=== PATIENT | female | born 1960 | race Caucasian/White ===

== ENCOUNTER 2017-09-29 19:10 | Emergency (ER) | payer OTHER ==
[~2017-09-29] VITALS: Ht 149.9 cm; Wt 63.5 kg
[~2017-09-29 19:10] MED LIST: ACET325 PO; ASPI81CH PO; BENZ100A PO; BISA5EC; BISA5EC PO; CALCAVITD PO; CALCAVITDA; CALCIUM; CHLGLU.12S; CHLGLU.12S MT; CLIN300 PO; DIAZ10 UD; DIVA250EC PO; DIVA500ER; DIVA500ER PO; DOCU100; DOCU100 PO; Enulose10 GM/15 M PO; FURO40; FURO80; FURO80 PO; Fleet Bisa10 MG/30 M RC; LACT10SY PO; LAMICTAL; LAMO100 PO; LAVAP17G; LEVFLO250 PO; MEDR150I; MEDR150I IM; MINE10T; MINERAL OIL HEAV1 ML BOTHEARS; MIRALAX17 GM PO; PHENY100ER PO; POTCHL20ER; POTCHL20ER PO; SENN187 PO; SORB70L; SORB70L PO; TERB24TC; TERB24TC TOP; Zithromax250 MG PO
[2017-09-29] MEDS ORDERED: DOCU100 PO (20:20)
[2017-09-29] MEDS ORDERED: MINERAL OIL HEAV1 ML BOTHEARS (20:21)
[2017-09-29] MEDS ORDERED: BISA5EC PO (20:21)
[2017-09-29] MEDS ORDERED: ACETADRYL 500-1 EACH PO (20:22)
[2017-09-29] MEDS ORDERED: MIRALAX17 GM PO (20:22)
[2017-09-29] MEDS ORDERED: FURO80 PO (20:22)
[2017-09-29] MEDS ORDERED: ASPI81CH PO (20:23)
[2017-09-29] MEDS ORDERED: Senexon8.6 MG PO (20:23)
[2017-09-29] MEDS ORDERED: POTCHL20ER PO (20:23)
[2017-09-29] MEDS ORDERED: LACTULOSE10 GM/15 M PO (20:24)
[2017-09-29] MEDS ORDERED: CVS CALCIUM 501 EAC2 PO (20:24)
[2017-09-29] MEDS ORDERED: Lamictal200 MG PO (20:25)
[2017-09-29] MEDS ORDERED: Mucinex600 MG PO (21:33)
[2017-09-29] MEDS ORDERED: BENZ100A PO (21:33)
[2018-07-20] MEDS ORDERED: Dulcolax Stool100 MG PO (14:00)
[2018-07-20] MEDS ORDERED: Metamucil Smooth1 EA PO (14:01)
[2018-07-20] MEDS ORDERED: SENN187 PO (14:02)
[2018-07-20] MEDS ORDERED: LACT10SY PO (14:03)
[2018-07-20] MEDS ORDERED: GAVILAX17 GM PO (14:04)
[2018-07-20] MEDS ORDERED: DIAZ10 PO (14:05)
[2018-07-20] MEDS ORDERED: FURO80 PO (14:06)
[2018-07-20] MEDS ORDERED: ASPI81CH PO (14:06)
[2018-07-20] MEDS ORDERED: Lamictal200 MG PO (14:07)
[2018-07-20] MEDS ORDERED: Dulcolax5 MG PO (14:08)
[2018-07-20] MEDS ORDERED: POTCHL20ER PO (14:09)
[2018-07-20] MEDS ORDERED: MINERAL OIL BOTHEARS (14:11)
[2018-07-20] MEDS ORDERED: PERIDEX15 ML (14:15)
[2018-07-20] MEDS ORDERED: PERIDEX15 ML PO (14:16)
[2018-07-20] MEDS ORDERED: TYLENOL PM PO (14:21)
[2018-07-20] MEDS ORDERED: ACET325 PO (14:22)
[2018-07-20] MEDS ORDERED: HYDROCORTISONE TOP (14:26)
[2018-07-20] MEDS ORDERED: DERMASEPTIN OI113 GM TOP (14:29)
[2018-07-20] MEDS ORDERED: FOLGARD OS PO (14:31)
[2018-07-20] MEDS ORDERED: XYLITOL PO ×2 (14:33→14:36)
[2018-07-20] MEDS ORDERED: Omeprazole20 M1 PO (14:36)
[2018-07-20] MEDS ORDERED: REGULOID PO (14:38)
[2018-07-20] MEDS ORDERED: MAGNESIUM400 MG PO (14:39)
[2018-07-20] MEDS ORDERED: MIRT15 PO (14:41)
== END 2017-09-29 21:38 | disposition home or self-care (01) ==
LOC: ER 19:10
DX: J40 Bronchitis, not specified as acute or chronic (principal); Z88.1 Allergy status to other antibiotic agents; Z88.8 Allergy status to other drugs, medicaments and biological substances; Z79.899 Other long term (current) drug therapy; Z79.82 Long term (current) use of aspirin; I10 Essential (primary) hypertension
CPT/HCPCS: 71046; 99283

== ENCOUNTER 2017-11-30 11:37 | Emergency (ER) | payer OTHER ==
[~2017-11-30] VITALS: Ht 154.9 cm; Wt 67.6 kg
[~2017-11-30 11:37] MED LIST changes: +ACETADRYL 500-1 EACH PO; +CVS CALCIUM 501 EAC2 PO; +LACTULOSE10 GM/15 M PO; +Lamictal200 MG PO; +Mucinex600 MG PO; +Senexon8.6 MG PO
[2017-11-30] MEDS ORDERED: Omeprazole20 M1 (12:30)
[2017-11-30] MEDS ORDERED: ERYT1OIN BOTHEYES ×2 (12:32→12:34)
[2018-07-20] MEDS ORDERED: Dulcolax Stool100 MG PO (14:00)
[2018-07-20] MEDS ORDERED: Metamucil Smooth1 EA PO (14:01)
[2018-07-20] MEDS ORDERED: SENN187 PO (14:02)
[2018-07-20] MEDS ORDERED: LACT10SY PO (14:03)
[2018-07-20] MEDS ORDERED: GAVILAX17 GM PO (14:04)
[2018-07-20] MEDS ORDERED: DIAZ10 PO (14:05)
[2018-07-20] MEDS ORDERED: FURO80 PO (14:06)
[2018-07-20] MEDS ORDERED: ASPI81CH PO (14:06)
[2018-07-20] MEDS ORDERED: Lamictal200 MG PO (14:07)
[2018-07-20] MEDS ORDERED: Dulcolax5 MG PO (14:08)
[2018-07-20] MEDS ORDERED: POTCHL20ER PO (14:09)
[2018-07-20] MEDS ORDERED: MINERAL OIL BOTHEARS (14:11)
[2018-07-20] MEDS ORDERED: PERIDEX15 ML (14:15)
[2018-07-20] MEDS ORDERED: PERIDEX15 ML PO (14:16)
[2018-07-20] MEDS ORDERED: TYLENOL PM PO (14:21)
[2018-07-20] MEDS ORDERED: ACET325 PO (14:22)
[2018-07-20] MEDS ORDERED: HYDROCORTISONE TOP (14:26)
[2018-07-20] MEDS ORDERED: DERMASEPTIN OI113 GM TOP (14:29)
[2018-07-20] MEDS ORDERED: FOLGARD OS PO (14:31)
[2018-07-20] MEDS ORDERED: XYLITOL PO ×2 (14:33→14:36)
[2018-07-20] MEDS ORDERED: Omeprazole20 M1 PO (14:36)
[2018-07-20] MEDS ORDERED: REGULOID PO (14:38)
[2018-07-20] MEDS ORDERED: MAGNESIUM400 MG PO (14:39)
[2018-07-20] MEDS ORDERED: MIRT15 PO (14:41)
== END 2017-11-30 13:54 | disposition home or self-care (01) ==
LOC: ER 11:37
DX: H18.9 Unspecified disorder of cornea (principal); R62.50 Unspecified lack of expected normal physiological development in childhood; I11.0 Hypertensive heart disease with heart failure; I50.9 Heart failure, unspecified; Z88.1 Allergy status to other antibiotic agents; Z88.8 Allergy status to other drugs, medicaments and biological substances; Z79.899 Other long term (current) drug therapy; Z79.82 Long term (current) use of aspirin
CPT/HCPCS: 99282

== ENCOUNTER 2017-12-04 15:50 | Emergency (ER) | payer OTHER ==
[~2017-12-04] VITALS: Ht 157.5 cm; Wt 65.8 kg
[~2017-12-04 15:50] MED LIST changes: +ERYT1OIN BOTHEYES; +Omeprazole20 M1
[2017-12-04] MEDS ORDERED: LAMO100 PO (16:51)
[2017-12-04 17:12] LABS: BASOPHILS ABSOLUTE AUTO 0.02 K/mm3 (0.00-0.23); BASOPHILS PERCENT AUTO 0 % (0-2); EOSINOPHILS ABSOLUTE AUTO 0.07 K/mm3 (0.00-0.68); EOSINOPHILS PERCENT AUTO 1 % (0-6); Hematocrit 42.2 % (33.0-51.0); Hemoglobin 13.8 g/dL (11.5-16.0); IMMATURE GRAN ABSOLUTE AUTO 0.05 K/mm3 (0.00-0.10); IMMATURE GRAN PERCENT AUTO 0 % (0-1); LYMPHOCYTES ABSOLUTE AUTO 0.92 K/mm3 (0.84-5.20); LYMPHOCYTES PERCENT AUTO 7 % (21-46); MONOCYTES ABSOLUTE AUTO 0.82 K/mm3 (0.16-1.47); MONOCYTES PERCENT AUTO 7 % (4-13); Mean Corpuscular HGB 31.8 pg (26.0-34.0); Mean Corpuscular HGB Conc 32.7 g/dL (31.5-36.5); Mean Corpuscular Volume 97 fL (80-100); NEUTROPHILS ABSOLUTE AUTO 10.51 K/mm3 (1.96-9.15); NEUTROPHILS PERCENT AUTO 85 % (41-73); RDW Coefficient Variation 12.4 % (11.7-14.2); RDW Standard Deviation 44.5 fL (35.1-46.3); Red Blood Cell Count 4.34 M/mm3 (3.80-5.20); White Blood Cell Count 12.39 K/mm3 (4.00-11.30)
[2017-12-04 17:15] LABS: Mean Platelet Volume 12.3 fL (9.1-12.4)
[2017-12-04 17:27] LABS: Alanine Aminotransfer (ALT/SGP 21 U/L (12-78); Albumin, Blood 3.4 g/dL (3.4-5.0); Albumin/Globulin Ratio 0.8 (0.8-1.8); Alk Phos 74 U/L (50-136); Anion Gap 8 mmol/L (6-16); Aspartate Aminotrans (AST/SGOT 33 U/L (12-37); Bilirubin, Total 0.5 mg/dL (0.1-1.0); Blood Urea Nitrogen 12 mg/dL (8-24); Bun/Creatinine Ratio 13.9 (12.0-20.0); CO2, Blood 28 mmol/L (21-32); Calcium, Blood 9.4 mg/dL (8.5-10.1); Chloride, Blood 103 mmol/L (98-108); Creatinine, Blood 0.86 mg/dL (0.40-1.00); Globulin, Blood 4.1 g/dL (2.2-4.0); Glomerular Filtration Rate >60 (60-); Glucose, Blood 118 mg/dL (70-99); Potassium, Blood 4.1 mmol/L (3.5-5.5); Sodium, Blood 139 mmol/L (136-145); Total Protein, Blood 7.5 g/dL (6.4-8.2)
[2017-12-04 17:37] LABS: Platelet Count 72 K/mm3 (150-400)
[2017-12-04] MEDS ORDERED: HYDR1TAB94 PO (19:30)
[2017-12-04 19:32] LABS: Source, Urine Clean Catch
[2017-12-04 19:38] LABS: Appearance, Urine Clear (Clear); Bilirubin, Urine Neg (Neg); Blood, Urine 3+ (Neg); Color, Urine Yellow (P-Yellow); Glucose Qualitative, Urine Neg (Neg); Ketones, Urine Neg (Neg); Leukocyte Esterase, Urine Neg (Neg); Nitrite, Urine Neg (Neg); Protein, Urine Neg (Neg); Urobilinogen, Urine NORM (Normal)
[2017-12-04 19:46] LABS: Bacteria Mod /hpf; Squamous Epithelial Cells Rare /hpf (Few)
== END 2017-12-04 19:38 | disposition home or self-care (01) ==
LOC: ER 15:50
PROVIDERS: Emergency Medicine
DX: R10.9 Unspecified abdominal pain (principal); R62.50 Unspecified lack of expected normal physiological development in childhood; Z88.0 Allergy status to penicillin; Z88.1 Allergy status to other antibiotic agents; Z88.8 Allergy status to other drugs, medicaments and biological substances; Z79.899 Other long term (current) drug therapy; Z79.82 Long term (current) use of aspirin; I10 Essential (primary) hypertension
CPT/HCPCS: 36415; 74176; 80053; 81001; 85025; 96360; 96361; 96372; 99284; J7030

== ENCOUNTER 2018-10-21 08:14 | Day surgery (SDC) | payer OTHER ==
[~2018-10-21] VITALS: Ht 154.9 cm; Wt 72.7 kg
[~2018-10-21 08:14] MED LIST changes: +ACET325; +ANTIBIOTIC; +Acetaminophen1 EAC2 PO; +Aspirin EC81 MG PO; +CALCIUM 600+D31 EACH PO; +CALMOSEPTINE O3.5 GM; +CARB10OTL; +CORTISONE60 GM; +DERMASEPTIN OI113 GM TOP; +DIAZ10; +DIAZ10 PO; +Dulcolax Stool100 MG PO; +Dulcolax5 MG PO; +Enema133 M1 RC; +FOLGARD OS PO; +GAVILAX17 GM PO; +HYDR1TAB94 PO; +HYDROCORTISONE TOP; +Laxative5 M1 PO; +MAGNESIUM400 MG PO; +MINERAL OIL BOTHEARS; +MINERAL OIL HEAV1 ML; +MIRT15; +MIRT15 PO; +Metamucil Smooth1 EA PO; +Murine Ear Wax15 ML OT; +Omeprazole20 M1 PO; +PERIDEX15 ML; +PERIDEX15 ML PO; +POTASSIUM CHLO20 MEQ PO; +PSYLLIUM SEED480 GM PO; +REGULOID PO; +REGULOID POWDE; +SLEEP PO; +Stool Softener100 MG PO; +TYLENOL PM PO; +VICKS VAPORUB O50 GM; +XYLITOL PO; +[UNRECOGNIZED DRUG - OTHER]; +[UNRECOGNIZED DRUG - OTHER]; +[UNRECOGNIZED DRUG - OTHER]
--- NOTE | 2018-10-21 11:16 | NUR ---
10/21/18 1116 Hayley Dunham 1100 recieved report from [email or web address].[email or web address].
== END 2018-10-21 11:55 | disposition home or self-care (01) ==
LOC: ORSCSDS 08:14
PROVIDERS: Ophthalmology
PROC: 08B43ZZ Excision of Right Vitreous, Percutaneous Approach (ICD-10-PCS; principal; 2018-10-21 10:00)
PROC: 08PJ3JZ Removal of Synthetic Substitute from Right Lens, Percutaneous Approach (ICD-10-PCS; principal; 2018-10-21 10:00)
DX: T85.22XA Displacement of intraocular lens, initial encounter (principal); H21.1X1 Other vascular disorders of iris and ciliary body, right eye; Q02 Microcephaly; G40.909 Epilepsy, unspecified, not intractable, without status epilepticus; Q24.9 Congenital malformation of heart, unspecified; Z79.899 Other long term (current) drug therapy; Z79.82 Long term (current) use of aspirin
CPT/HCPCS: J2001; J2250; J2405; J3010; J3301; J7120

== ENCOUNTER → 2019-03-15 | Outpatient (CLI) | payer OTHER ==
[2019-03-16 10:08] LABS: Source, Urine Voided
[2019-03-16 16:01] LABS: Bilirubin, Urine Neg (Neg); Blood, Urine 1+ (Neg); Glucose Qualitative, Urine Neg (Neg); Ketones, Urine Neg (Neg); Leukocyte Esterase, Urine 3+ (Neg); Nitrite, Urine Neg (Neg); Protein, Urine 2+ (Neg); Urobilinogen, Urine NORM (Normal)
[2019-03-16 16:02] LABS: Appearance, Urine Hazy (Clear); Color, Urine Yellow (P-Yellow)
[2019-03-16 16:03] LABS: White Blood Cells, Urine TNTC /hpf (0-5)
[2019-03-16 16:04] LABS: Bacteria Many /hpf; Squamous Epithelial Cells Few /hpf (Few)
== END ==
LOC: LAB 10:02 → LAB SHORT 10:02
PROVIDERS: Nurse Practitioner Family
DX: R35.0 Frequency of micturition (principal)
CPT/HCPCS: 81001; 87077; 87086; 87186

== ENCOUNTER 2019-06-13 14:00 | Emergency (ER) | payer OTHER ==
[~2019-06-13] VITALS: Ht 157.5 cm; Wt 78.0 kg
== END 2019-06-13 15:04 | disposition home or self-care (01) ==
LOC: ER 14:00
DX: S00.33XA Contusion of nose, initial encounter (principal); R04.0 Epistaxis; W22.8XXA Striking against or struck by other objects, initial encounter; Z88.0 Allergy status to penicillin; Z88.8 Allergy status to other drugs, medicaments and biological substances; Z79.899 Other long term (current) drug therapy; Z79.82 Long term (current) use of aspirin; I10 Essential (primary) hypertension
CPT/HCPCS: 99283

== ENCOUNTER → 2019-07-29 | Outpatient (CLI) | payer OTHER ==
[2019-07-29 17:44] LABS: Bilirubin, Urine Neg (Neg); Blood, Urine 2+ (Neg); Glucose Qualitative, Urine Neg (Neg); Ketones, Urine 1+ (Neg); Leukocyte Esterase, Urine 3+ (Neg); Nitrite, Urine Neg (Neg); Protein, Urine 1+ (Neg); Specific Gravity, Urine 1.015 (1.003-1.022); Urobilinogen, Urine NORM (Normal)
[2019-07-29 17:56] LABS: Appearance, Urine Hazy (Clear); Color, Urine Yellow (P-Yellow)
[2019-07-29 17:57] LABS: Bacteria Many /hpf; Squamous Epithelial Cells Few /hpf (Few); White Blood Cells, Urine 25-50 /hpf (0-5)
== END | disposition home or self-care (01) ==
LOC: LAB SHORT 12:37 → LAB 12:37
PROVIDERS: Family Medicine
DX: N39.0 Urinary tract infection, site not specified (principal)
CPT/HCPCS: 81001; 87077; 87086; 87186

== ENCOUNTER → 2019-09-23 | Outpatient (CLI) | payer OTHER ==
[2019-09-23 14:48] LABS: Source, Urine Clean Catch
[2019-09-23 19:22] LABS: Bilirubin, Urine Neg (Neg); Blood, Urine 1+ (Neg); Glucose Qualitative, Urine Neg (Neg); Ketones, Urine Neg (Neg); Leukocyte Esterase, Urine Neg (Neg); Nitrite, Urine Neg (Neg); Protein, Urine Neg (Neg); Specific Gravity, Urine 1.015 (1.003-1.022); Urobilinogen, Urine NORM (Normal)
[2019-09-23 19:39] LABS: Appearance, Urine Clear (Clear); Color, Urine Yellow (P-Yellow)
[2019-09-23 19:40] LABS: Amorphous Light (0-Heavy); Bacteria Mod /hpf; Mucus Light (0-Heavy); Red Blood Cells, Urine 0-2 /hpf (0-2); Squamous Epithelial Cells Mod /hpf (Few); White Blood Cells, Urine 0-2 /hpf (0-5)
== END | disposition home or self-care (01) ==
LOC: LAB 14:46 → LAB SHORT 14:46
PROVIDERS: Family Medicine
DX: N39.0 Urinary tract infection, site not specified (principal)
CPT/HCPCS: 81001; 87086

== ENCOUNTER 2019-11-22 08:58 | Day surgery (SDC) | payer OTHER ==
[~2019-11-22] VITALS: Ht 154.9 cm; Wt 83.3 kg
[~2019-11-22 08:58] MED LIST changes: +BENEFIBER1 EAC1 PO; +CALCIUM 600 +1 EAC7 PO; +COLACE 2-IN-11 EACH PO; +Calmoseptine Oi71 GM; +Colace100 MG PO; +Fleet Enema132 ML; +Gas-X125 M1; +LAMICTAL200 MG PO; +LINZESS290 MCG PO; +MAGNESIUM CITR296 M1; +Mucinex1200 MG PO; +Murine Ear Wax15 ML; +XYLIMELTS550 MG PO
[2019-11-22] MEDS ORDERED: ERYT.5TO RIGHTEYE (09:44)
[2019-11-22] MEDS ORDERED: LATANOPROST2.5 M1 RIGHTEYE (09:45)
[2019-11-22] MEDS ORDERED: MIRT30 PO (09:46)
[2019-11-22] MEDS ORDERED: OMEP20ER PO (09:47)
[2019-11-22] MEDS ORDERED: MIRALAX17 GM PO (09:47)
[2019-11-22] MEDS ORDERED: SENNA LAXATIVE8.6 MG PO (09:48)
[2019-11-22] MEDS ORDERED: TIMO.5OPSO BOTHEYES (09:48)
--- NOTE | 2019-11-22 12:02 | NUR ---
11/22/19 1202 FABRICE GOMEZ PATIENT COMPLETELY APNEIC ON ARRIVAL TO PACU, O2 SATS IN 40S. PATIENT PLACED ON NON-REBREATHER AT 15LPM, NASAL AIRWAY PLACED LEFT NOSTRIL BY DR. SPEARS. PATIENT CONTINUED TO HAVE NO RESPIRATORY EFFORT DESPITE OPEN AIRWAY AND PATIENT STIMULATION. AMBU BAG AVAILABLE, NOT USED PER DR. SPEARS. SATS INCREASED TO 70S/80S. PATIENT STARTED TO TAKE SHALLOW BREATHS, SATS INCREASED TO 90S.
--- NOTE | 2019-11-22 13:25 | NUR ---
11/22/19 1325 FABRICE GOMEZ PATIENT UP INTO CHAIR WITH ASSISTANCE, AFTER ACTIVITY PATIENT'S O2 SATS 88%. BLOW BY O2 INITIATED AGAIN WITH IMPROVEMENT IN SATS TO 100%. AFTER SITTING IN CHAIR FOR 10-15 MINUTES PATIENT PLACED ON ROOM AIR WITH SATS 90-93%. PATIENT ENCOURAGED TO TAKE DEEP BREATHS AND COUGH, PATIENT HAS MINIMAL PARTICIPATION WITH THIS. PER CAREGIVERS, PATIENT SEEMS CLOSE TO BASELINE WITH COMMUNICATION AND BEHAVIORS. DISCHARGE INSTRUCTIONS REVIEWED WITH PATIENT/CAREGIVERS. CAREGIVERS EXPRESS UNDERSTANDING, NO QUESTIONS AT THIS TIME. REPORT GIVEN TO LYLA YU. WILL CONTINUE TO MONITOR PULSE OXIMETRY/ENCOURAGE COUGHING/BREATHING EXERCISES.
== END 2019-11-22 13:55 | disposition home or self-care (01) ==
LOC: ORSCSDS 08:58
PROVIDERS: Dentist Pediatric Dentistry
PROC: 0CDWXZ0 Extraction of Upper Tooth, Single, External Approach (ICD-10-PCS; principal; 2019-11-22 10:15)
DX: K02.9 Dental caries, unspecified (principal); K05.30 Chronic periodontitis, unspecified; G40.909 Epilepsy, unspecified, not intractable, without status epilepticus; F88 Other disorders of psychological development; I51.7 Cardiomegaly; Z79.899 Other long term (current) drug therapy
CPT/HCPCS: J1100; J2250; J2405; J2704; J2710; J3010

== ENCOUNTER 2022-03-02 16:11 | Inpatient (IN) | payer OTHER ==
[~2022-03-02] VITALS: Ht 149.9 cm; Wt 84.0 kg
[~2022-03-02 16:11] MED LIST changes: +ERYT.5TO RIGHTEYE; +LATANOPROST2.5 M1 RIGHTEYE; +MIRT30 PO; +OMEP20ER PO; +SENNA LAXATIVE8.6 MG PO; +TIMO.5OPSO BOTHEYES
[2022-03-02 17:29] LABS: PCO2 Arterial 65.7 mmHg (35-45)
[2022-03-02 17:30] LABS: PO2 Arterial 47.6 mmHg (80-100)
[2022-03-02 18:31] LABS: Influenza A, PCR NEGATIVE (NEGATIVE); Influenza B, PCR NEGATIVE (NEGATIVE); Resp Syncytial Virus, PCR NEGATIVE (NEGATIVE); SARS-Cov-2 (COVID-19) PCR, MMC NEGATIVE (NEGATIVE)
[2022-03-02 19:40] LABS: BASOPHILS ABSOLUTE AUTO 0.03 K/mm3 (0.00-0.23); BASOPHILS PERCENT AUTO 1 % (0-2); EOSINOPHILS ABSOLUTE AUTO 0.21 K/mm3 (0.00-0.68); EOSINOPHILS PERCENT AUTO 4 % (0-6); Hematocrit 47.1 % (33.0-51.0); Hemoglobin 14.8 g/dL (11.5-16.0); IMMATURE GRAN ABSOLUTE AUTO 0.01 K/mm3 (0.00-0.10); IMMATURE GRAN PERCENT AUTO 0 % (0-1); LYMPHOCYTES ABSOLUTE AUTO 2.25 K/mm3 (0.84-5.20); LYMPHOCYTES PERCENT AUTO 38 % (21-46); MONOCYTES ABSOLUTE AUTO 0.65 K/mm3 (0.16-1.47); MONOCYTES PERCENT AUTO 11 % (4-13); Mean Corpuscular HGB 32.3 pg (26.0-34.0); Mean Corpuscular HGB Conc 31.4 g/dL (31.5-36.5); Mean Corpuscular Volume 103 fL (80-100); Mean Platelet Volume 10.7 fL (9.1-12.4); NEUTROPHILS ABSOLUTE AUTO 2.83 K/mm3 (1.96-9.15); NEUTROPHILS PERCENT AUTO 47 % (41-73); Platelet Count 163 K/mm3 (150-400); RDW Coefficient Variation 12.9 % (11.7-14.2); RDW Standard Deviation 49.1 fL (35.1-46.3); Red Blood Cell Count 4.58 M/mm3 (3.80-5.20); White Blood Cell Count 5.98 K/mm3 (4.00-11.30)
[2022-03-02 20:00] LABS: Albumin, Blood 3.4 g/dL (3.4-5.0); Albumin/Globulin Ratio 0.9 (0.8-1.8); Bilirubin, Total 0.4 mg/dL (0.1-1.0); Bun/Creatinine Ratio 13.8 (12.0-20.0); Calcium, Blood 9.3 mg/dL (8.5-10.1); Creatinine, Blood 0.8 mg/dL (0.40-1.00); Globulin, Blood 3.8 g/dL (2.2-4.0); Potassium, Blood 3.4 mmol/L (3.5-5.5); Total Protein, Blood 7.2 g/dL (6.4-8.2)
[2022-03-02 21:33] LABS: Base Excess Venous 14.9 mmol/L; PCO2 Venous 89.5 mmHg (38-42)
[2022-03-02 21:34] LABS: pH Blood Venous 7.28 (7.34-7.37)
--- NOTE | 2022-03-02 23:35 | NUR ---
ASSUMED CARE PT CAME IN VIA GURNEY. SHE WAS RESTRAINED DUE TO NOT WANTING OXYGEN ON AND NEEDING TO HAVE IT ON. THIS WAS USED ONLY FOR THE TRANSFER AND WHEN IN THE ROOM RESTRAINTS TAKEN OFF. CAREGIVER WAS AT BEDSIDE BUT WAS UNABLE TO STAY. PT WAS ON 9LNC WITH SATS ABOVE 92%. VITALS STABLE. PT REFUSED OXYGEN IN NOSE. CALL MADE TO DR WAGNER BY CHARGE NURSE FOR PRN'S. CAREGIVER STATED THAT [facility] INSISTED THAT PT NOT BE RESTRAINED ONLY SEDATED. BED ALARN ON.
[2022-03-03 05:15] LABS: Base Excess Venous 16.6 mmol/L; Bicarbonate Venous 35.5 mmol/L (24.0-30.0); PCO2 Venous 81.8 mmHg (38-42); pH Blood Venous 7.33 (7.34-7.37)
[2022-03-03 05:17] LABS: BASOPHILS ABSOLUTE AUTO 0.02 K/mm3 (0.00-0.23); BASOPHILS PERCENT AUTO 0 % (0-2); EOSINOPHILS ABSOLUTE AUTO 0.22 K/mm3 (0.00-0.68); EOSINOPHILS PERCENT AUTO 4 % (0-6); Hematocrit 44.5 % (33.0-51.0); Hemoglobin 13.5 g/dL (11.5-16.0); IMMATURE GRAN PERCENT AUTO 0 % (0-1); LYMPHOCYTES ABSOLUTE AUTO 1.87 K/mm3 (0.84-5.20); LYMPHOCYTES PERCENT AUTO 37 % (21-46); MONOCYTES ABSOLUTE AUTO 0.66 K/mm3 (0.16-1.47); MONOCYTES PERCENT AUTO 13 % (4-13); Mean Corpuscular HGB 32.1 pg (26.0-34.0); Mean Corpuscular HGB Conc 30.3 g/dL (31.5-36.5); Mean Corpuscular Volume 106 fL (80-100); Mean Platelet Volume 10.7 fL (9.1-12.4); NEUTROPHILS ABSOLUTE AUTO 2.24 K/mm3 (1.96-9.15); NEUTROPHILS PERCENT AUTO 45 % (41-73); Platelet Count 141 K/mm3 (150-400); RDW Coefficient Variation 12.8 % (11.7-14.2); RDW Standard Deviation 50.2 fL (35.1-46.3); White Blood Cell Count 5.01 K/mm3 (4.00-11.30)
--- NOTE | 2022-03-03 06:54 | NUR ---
SHIFT SUMMARY PT WHEN NOT SEDATED IN PULLS OFF OXYGENATION. VITALS ARE STABLE. SHE IS ON BIPAP 18/8 25% FIO2 WITH SATS ABOVE 90%. PT TRIES TO HIT WHEN AWAKE AND TAKE OFF BIPAP. PT IS CURRENTLY SEDATED. ATTENDS IN PLACE, PT IS INCONT. NS AND KCL INFUSING. BED ALRM IS ACTIVE.
[2022-03-03 07:19] LABS: Albumin/Globulin Ratio 0.9 (0.8-1.8); Bilirubin, Total 0.3 mg/dL (0.1-1.0); Bun/Creatinine Ratio 10.4 (12.0-20.0); Calcium, Blood 8.6 mg/dL (8.5-10.1); Creatinine, Blood 0.87 mg/dL (0.40-1.00); Globulin, Blood 3.5 g/dL (2.2-4.0); Potassium, Blood 3.5 mmol/L (3.5-5.5); Total Protein, Blood 6.5 g/dL (6.4-8.2)
[2022-03-03 12:07] LABS: Source, Urine Foley catheter
[2022-03-03 12:12] LABS: Bilirubin, Urine Neg (Neg); Blood, Urine Neg (Neg); Glucose Qualitative, Urine Neg (Neg); Ketones, Urine Neg (Neg); Leukocyte Esterase, Urine Neg (Neg); Nitrite, Urine Neg (Neg); Protein, Urine Neg (Neg); Urobilinogen, Urine NORM (Normal)
[2022-03-03 12:13] LABS: Appearance, Urine Clear (Clear); Color, Urine Yellow (P-Yellow)
--- NOTE | 2022-03-03 18:49 | NUR ---
PT SUMMARY: PT HAS BEEN ON BIPAP MOST OF THE SHIFT SLEEPING, WAKES UP WHEN TOUCHED OR MOVED, GETS COMBATIVE WITH CARES SWINGING ARMS, COTTO CATHETER WAS PLACED WAS RETAINING 700MLS SHOWED IN THE BLADDER SCANNER, PT ALSO ON IV MAINTENANCE. HAD 700MLS OUTPUT FOR THE SHIFT. 2 CAREGIVERS CAME IN TO VISIT PT, SOPHY CURRENTLY AT BEDSIDE AT THE MOMENT, PT WOKE UP AROUND 1500 BIPAP SWITCHED TO 2L OF O2 VIA NASAL CANNULA SO PT CAN TAKE A BREAK, ATTEMPTED TO OF ORAL CARE, SUCTION WAS SET UP AT THE BEDSIDE PT REFUSED SWINGING ARMS AT THIS RN, CAREGIVER ALSO TRIED WAS ALSO GIVEN INFORMATION ABOUT IMPORTANCE OF ORAL CARE ESPECIALLY PT IS ON BIPAP CAREGIVER REPORTED THEY DONT WANT RESTRAINT ON PT AND THEY CAN ONLY REDIRECT THEM HOWEVER PT WAS NOT REDIRECTABLE. WILL PASS ALONG TO NIGHT RN TO RE ATTEMPT ORAL CARE. NO PO INTAKE OFFERED. IV ABO WAS GIVEN, NS RUNNING AT 100MLS/HR. PT STAYED CALM IN BED WHILE VALVE INSERTER IS AT BEDSIDE. VITALS WERE STABLE. PT NON VERBAL, UNABLE TO COMPLAIN. BIPAP ON AVAP SETTINGS WITH 25%FIO2 AT BEDSIDE. PT REPOSITIONED FOR COMFORT. NO OTHER ISSUES REPORTED WILL REPORT TO ONCOMING SHIFT
--- NOTE | 2022-03-03 22:54 | NUR ---
CARE ASSUMPTION PT IS ALERT SITTING UPRIGHT IN THE BED WATCHING TV. PT MAKING GROWLING NOISES TOWARDS STAFF BUT IS NON-VERBAL AT BASLINE. PT APPEARS IN NO DISTRESS AND HAS O2 SATS >90% ON 2L NC. CAREGIVER AT BEDSIDE DURING BEDSIDE REPORT.
--- NOTE | 2022-03-04 06:06 | NUR ---
TAPER AND FLOATER SUMMARY PT IS ALERT TO SELF BUT DOES NOT FOLLOW ANY DIRECTIONS. PT HAS MAINTAINED O2 SATS >94% THIS SHIFT WEARING THE BIPAP ALL NIGHT. VSS AND AFEBRILE. PT WAS RESISTANT TO SOME CARE ESPECIALLY ORAL CARE BUT THIS RN WAS ABLE TO DO ORAL CARE ONCE AFTER PROLONGED ATTEMPT THE PT LET ME DO IT. PT LYING IN BED ALL SHIFT AWAKE ONLY FALLING ASLEEP EARLY THIS AM. COTTO PATENT AND DRAINING DARK GODFREY URINE, SEE I&O'S FOR DETAILS. NS RUNNING AT 100ML/HR. PT STILL NPO PENDING SWALLOW EVAL. WILL REPORT TO ONCOMING RN.
--- NOTE | 2022-03-04 11:30 | NUR ---
UPDATE PT DESATURATING ON MONITOR DOWN TO 60'S. THIS RN ENTERED ROOM AND PLACED NASAL CANNULA ON THE PT. PT AWAKE AND RESPONSIVE. SATS INCREASE TO 90'S WITH 3L NC. DR. BOND NOTIFIED AND VBG ORDERED. WILL CONTINUE TO MONITOR CLOSELY
[2022-03-04 12:07] LABS: Base Excess Venous 7.7 mmol/L; PCO2 Venous 63.8 mmHg (38-42); PO2 Venous 41.3 mmHg (38-42); pH Blood Venous 7.33 (7.34-7.37)
--- NOTE | 2022-03-04 18:06 | NUR ---
SHIFT SUMMARY ASSUMED CARE OF PT AT 1430. AGREE WITH PRIOR RN'S ASSESSMENT. PT NON-VERBAL, UNABLE TO ASSESS FOR CP. HR STABLE. BP STABLE. OXYGEN SATURATION MAINTAINED ABOVE 92% ON 3 L VIA NC.PT TURNED Q 2 HRS. PT AGGITATED WHEN PROVIDING CARE. ORAL CARE PROVIDED. PT REFUSING DINNER. COTTO PATENT AND TO GRAVITY DRAIN. CAREGIVER AT BEDSIDE. BED ALARM IN PLACE. WILL CONT TO MONITOR UNTIL REPORT GIVEN TO NIGHTSHIFT RN.
--- NOTE | 2022-03-05 05:51 | NUR ---
DRAPERY AND UPHOLSTERY ESTIMATOR SUMMARY PT IS ALERT BUT REMAINS COMBATIVE TO STAFF WHEN THEY ATTEMPT TO PROVIDE HANDS ON CARE TO HER. PT HAD ONE EPISODE WHERE SHE WAS FULLY AWAKE AND LOOKING AT STAFF BUT APPEARING TO BE HOLDING HER BREATH CAUSING HER O2 SATS TO DROP INTO THE 50'S REQUIRING ADDITIONAL O2 TO CATCH BACK UP. OTHER THEN THE ONE EPISODE THE PT HAS MAINTAINED O2 SATS >94% ON 1-2L NC. BP WNL AND STABLE. PT AFEBRILE. COTTO PATENT AND DRAINING DARK GODFREY URINE, SEE I&O'S FOR DETAILS. PT ABLE TO SLEEP COMFORTABLY FOR MOST OF THE NIGHT. WILL REPORT TO ONCOMING RN.
[2022-03-05] MEDS ORDERED: LEVO750 PO (13:47)
[2022-03-05] MEDS ORDERED: METR500 PO (13:48)
--- NOTE | 2022-03-05 14:54 | NUR ---
UPDATE PT'S CAREGIVER PROVIDED DC INSTRUCTIONS. PG REMOVED AND INTACT. ALL QUESTIONS ANSWERED. PT TAKEN OUT BY HOME WC
== END 2022-03-05 14:29 | disposition home health service (06) | DRG 193 ==
LOC: ER 16:11 → EDBEDREQ 21:54 → EDBEDREQSVC 21:54 → PCU 22:15
PROVIDERS: Emergency Medicine; Family Medicine; Nurse Practitioner Acute Care; ADMIT Internal Medicine
DX: J18.9 Pneumonia, unspecified organism (principal); J96.01 Acute respiratory failure with hypoxia; G92.8 Other toxic encephalopathy; Z20.822 Contact with and (suspected) exposure to COVID-19; Z66 Do not resuscitate; Q02 Microcephaly; R62.50 Unspecified lack of expected normal physiological development in childhood; E87.6 Hypokalemia; I10 Essential (primary) hypertension; G40.909 Epilepsy, unspecified, not intractable, without status epilepticus; F79 Unspecified intellectual disabilities; Z88.1 Allergy status to other antibiotic agents; Z88.8 Allergy status to other drugs, medicaments and biological substances; Z79.899 Other long term (current) drug therapy; Z79.82 Long term (current) use of aspirin; Z90.49 Acquired absence of other specified parts of digestive tract
CPT/HCPCS: 0241U; 36415; 36600; 51703; 71045; 80053; 81003; 82803; 82947; 83880; 84145; 84484; 85025; 85379; 92610; 93005; 93010; 94660; 94761; 94762; 96365; 96366; 96375; 99285-25; A9270; C1751; J1650; J1790; J1956; J2060; J3480; J7030

== ENCOUNTER 2022-03-18 17:17 | Inpatient (IN) | payer OTHER, MEDICARE ==
[~2022-03-18] VITALS: Ht 167.6 cm; Wt 79.8 kg
[~2022-03-18 17:17] MED LIST changes: +LEVO750 PO; +METR500 PO
[2022-03-18 21:47] LABS: BASOPHILS ABSOLUTE AUTO 0.03 K/mm3 (0.00-0.23); BASOPHILS PERCENT AUTO 1 % (0-2); EOSINOPHILS PERCENT AUTO 3 % (0-6); Hematocrit 49.2 % (33.0-51.0); Hemoglobin 15.6 g/dL (11.5-16.0); IMMATURE GRAN ABSOLUTE AUTO 0.01 K/mm3 (0.00-0.10); IMMATURE GRAN PERCENT AUTO 0 % (0-1); LYMPHOCYTES ABSOLUTE AUTO 2.68 K/mm3 (0.84-5.20); LYMPHOCYTES PERCENT AUTO 44 % (21-46); MONOCYTES ABSOLUTE AUTO 0.57 K/mm3 (0.16-1.47); MONOCYTES PERCENT AUTO 9 % (4-13); Mean Corpuscular HGB 31.5 pg (26.0-34.0); Mean Corpuscular HGB Conc 31.7 g/dL (31.5-36.5); Mean Corpuscular Volume 99 fL (80-100); Mean Platelet Volume 10.9 fL (9.1-12.4); NEUTROPHILS ABSOLUTE AUTO 2.56 K/mm3 (1.96-9.15); NEUTROPHILS PERCENT AUTO 42 % (41-73); Platelet Count 169 K/mm3 (150-400); RDW Coefficient Variation 12.9 % (11.7-14.2); RDW Standard Deviation 47.8 fL (35.1-46.3); Red Blood Cell Count 4.95 M/mm3 (3.80-5.20); White Blood Cell Count 6.05 K/mm3 (4.00-11.30)
[2022-03-18 22:28] LABS: Influenza A, PCR NEGATIVE (NEGATIVE); Influenza B, PCR NEGATIVE (NEGATIVE); Resp Syncytial Virus, PCR NEGATIVE (NEGATIVE); SARS-Cov-2 (COVID-19) PCR, MMC NEGATIVE (NEGATIVE)
--- NOTE | 2022-03-19 02:57 | NUR ---
PT ARRIVED TO ROOM 208 ACCOMPANIED BY CAREGIVER. SATS 90-91% ON RA UPON ARRIVAL. CAREGIVER LEFT APPX 0240 STATING HE NEEDED TO GO BACK TO CUSTODIAL R/T SHORT STAFF. SATS DROPPED TO MID-LOW 80'S AFTER PT SETTLED INTO BED. 2 RT STAFF IN ROOM ATTEMPTING TO PLACE O2 AND BRING SATS >90%. PT UNABLE TO TOLERATE ANYTHING CLOSE TO FACE, BECOMES AGITATED, HOLLERING, PUSHING STAFF AND EQUIPMENT AWAY. SATS 83% W/ATTEMPTED BLOWBY. CALL PLACED TO HOSPITALIST, PLAN TO TX TO ICU ON BIPAP W/RESTRAINTS. NURSING END MAKER NOTIFIED, AWAITING BED ASSIGNMENT.
--- NOTE | 2022-03-19 03:21 | NUR ---
PT CURRENTLY LYING IN BED W/BLOWBY O2 NEAR HEAD, SATS 88-91%, SATS DO DROP AGAIN WHE PT TURNS HEAD TO OPPOSITE SIDE. WILL CLOSELY MONITOR SATS UNTIL TX TO I
--- NOTE | 2022-03-19 03:25 | NUR ---
CALL PLACE OTIS [facility]ARR [facility] SHREDDING MACHINE KNIFE CHANGERINSPECTOR COLD WORKING, TO UPDATE ON PLAN TO TX TO ICU W/BIPAP ADN RESTRAINTS. OTIS VERBALIZED UNDERSTANDING AND AGREEMENT W/PLAN.
--- NOTE | 2022-03-19 04:00 | NUR ---
PT TO GO TO ICU PCU STATUS
[2022-03-19 04:28] LABS: PCO2 Venous 67.2 mmHg (38-42); pH Blood Venous 7.44 (7.34-7.37)
--- NOTE | 2022-03-19 04:46 | NUR ---
PT TX TO ICU. REPORT GIVEN TO LETICIA Caro RN. SATS DROPPED TO 83% WHEN 15L BLOWBY SHIFTED AWAY FROM HEAD. SATS TRENDING 86% WHEN IT IS ABLE TO BE PROPPED NEAR HEAD. BLOWBY PLACED W/PORTABLE O2 TANK FOR TX.
--- NOTE | 2022-03-19 05:51 | NUR ---
PATIENT ARRIVED TO ICU 3 VIA BED FROM 208 PCU STATUS. PATIENT AWAKE, MAKES EYE CONTACT, NOT FOLLOWING DIRECTIONS. HX OF COGNITIVE DELAY. CAREGIVER HOME FOR THE NIGHT. PATIENT PLACED ON BLOWBY OXYGEN FIO2 70% PATIENT REFUSING TO HAVE OXYGEN ON HER FACE PER HISTORY. RESP VERY SHALLOW BIOX RANGING 89-99% WITH THE BLOWBY, DOWN TO LOW 70'S ON RA. NO COUGH. PATIENT INCONT OF URINE ATTENDS IN PLACE. ARMS AND LEGS STIFF AND HAVE CONTRACTURES. PATIENT DOES WELL WITH CARE IF ABLE TO BE DISTRACTED WITH HER DOLL OR WITH TV. DIFFICULT IV START. ABLE TO OBTAIN IV TO LEFT AC
--- NOTE | 2022-03-19 07:36 | NUR ---
AM NOTE.... ASSUMED CARE OF PT AT 0700 THE PT IS A&O TO SELF AT THIS TIME. THE PT IS IN SR IN THE 70'S BP IS STABLE. THE PT HAS 1+ EDEMA NOTED TO HER BLE. THE PT IS ON 70% BLOW BY AT THIS TIME WITH O2 SATS 88%-94%, THE PT'S RR IS IN THE 20'S AND VERY SHALLOW. L/S VERY DIM D/T THE SHALLOW BREATHS. BT PRESENT AND HYPOACTIVE, ABD IS SOFT AND NONTENDER TO PALPATION. THE PT HAS ATTENDS IN PLACE THAT ARE CURRENTLY C/D/I. WILL CONTINUE TO MONITOR.
[2022-03-19 09:13] LABS: Albumin, Blood 3.5 g/dL (3.4-5.0); Bilirubin, Total 0.3 mg/dL (0.1-1.0); Bun/Creatinine Ratio 12.1 (12.0-20.0); Calcium, Blood 10.1 mg/dL (8.5-10.1); Creatinine, Blood 0.91 mg/dL (0.40-1.00); Globulin, Blood 3.6 g/dL (2.2-4.0); Potassium, Blood 3.6 mmol/L (3.5-5.5); Total Protein, Blood 7.1 g/dL (6.4-8.2)
--- NOTE | 2022-03-19 17:13 | NUR ---
Pt has caregiver at her side having her labs drawn. Pt grunting and upset at being poked. pt dusky and sats dropping. Once pt settled looking at her appears she has some discomfort. suggested tylenol for comfort of ventilation and she is grimacing and holding her muscles tight. Review of medications with nursing. pt kps score is 30% pt high risk for seizure activity. Will see if pt patient clears if not may need to talk with her advocate and see how the past few months have been. It may be time for comfort and hospice. Concern for great suffering from chronic lack of oxygen.
--- NOTE | 2022-03-19 17:48 | NUR ---
SHIFT SUMMARY.... NO ACUTE NEGATIVE CHANGES NOTED THIS SHIFT. THE PT WAS IN RESTRAINTS FOR A FEW HOURS TO KEEP THE BLOW-BY CLOSE ENOUGH TO HER FACE TO KEEP HER O2 SATS >88%, STARTING AT 1600 THE PT WAS CHANGED OVER TO A NASAL CANNULA AT 4L AND TITRATED DOWN TO 2L TO KEEP HER O2 SATS >90% AND THE RESTRAINTS WERE REMOVED. THE PT HAS HAD 4 EPISODES OF URINARY INCONT WITH ATTENDS CHANGE EVERY 2 HRS. NO SKIN ISSUES NOTED. THE PT'S VS HAVE BEEN STABLE. THE PT HAS NOT HAD A BM THIS SHIFT. [facility] STAFF HAVE BEEN AT THE BEDSIDE FOR MOST OF THIS SHIFT. CALL LIGHT IN REACH WILL CONTINUE TO MONITOR UNTIL REPORT IS GIVEN TO ONCOMING RN.
--- NOTE | 2022-03-19 20:43 | NUR ---
PATIENT AWAKE WITH CAREGIVER AT BEDSIDE. NONVERBAL, MOANS AT TIMES, CONTRACTURES TO ARMS AND LEGS, BUT ABLE TO PUSH AWAY AND PULL AWAY TO STIMULI. RIGHT PUPIL SLUGGISH AND LARGER THAN LEFT, HX OF SURGERY TO THAT EYE. CAREGIVER VERBALIZED THAT SHE NORMALLY WEARS A HARD PATCH OVER THAT EYE WHILE SLEEPING, PLAN TO KEEP EYE GLASSES IN PLACE AT THIS TIME UNTIL WE CAN OBTAIN PATCH. PUREWICK PLACED DUE TO PATIENT HAVING LARGE INCONTINENCE OF URINE Q2 HRS TO HELP KEEP HER SKIN DRY.
--- NOTE | 2022-03-20 05:23 | NUR ---
SUMMARY PATIENT SLEEPING OFF AND ON T/O NIGHT. OXYGEN 2L/NC REMAINS IN PLACE, PATIENT CONTINUES TO LEAVE IN PLACE. CAREGIVER REMAINS AT BEDSIDE, PROVIDING EMOTIONAL SUPPORT. PUREWICK REMAINS IN PLACE AND EFFECTIVE.
--- NOTE | 2022-03-20 09:57 | NUR ---
AM NOTE.... ASSUMED CARE OF PT AT 0700 THE PT IS A&O TO SELF AND DOES NOT FOLLOW DIRECTIONS. THE PT'S VS ARE STABLE THIS AM. THE PT WAS ON 2L NC THIS WAS TURNED OFF AND THE PT HAS BEEN ON RA WITH O2 SATS >88% BUT WHEN SHE FALLS ASLEEP HER O2 SATS DROP TO THE MID 80'S. L/S DIM T/O, PT BREATHS VERY SHALLOW. THE PT IS IN SR IN THE 80'S BP SOFT BUT STABLE. THE PT HAS 1+ EDEMA NOTED TO HER BLE. BT PRESENT AND HYPOACTIVE, ABD IS SOFT AND NONTENDER TO PALPATION. ATTENDS IN PLACE WITH OL[place] TO [place]. WILL CONTINUE TO MONITOR.
--- NOTE | 2022-03-20 10:21 | NUR ---
Spiritual Care Visit. Pt. is awake in bed. Pt. displays evidence of being devlopmentally delayed. Pt. is mostly non-verbal. With a calming presence sought to demonstrate humankindness. Prayed with Pt. Will look to see if care-givers visit during the day and connect with them.
--- NOTE | 2022-03-20 17:40 | NUR ---
PT D/C HOME.... PT D/C HOME WITH ALL OF HER BELONGINGS PACKED BY [facility] STAFF. THE PT WAS SENT HOME WITH A NEW ORDER OF O2 PRN AND AND WHILE SLEEPING. DISCHARGE INFORMATION WAS REVIEWED WITH [facility] STAFF WHO VERBALIZED THEIR UNDERSTANDING. THE PT'S IV WAS REMOVED WNL.
== END 2022-03-20 17:40 | disposition home or self-care (01) | DRG 189 ==
LOC: ER 17:17 → ICUE 17:18 → ERHOLD 17:18 → ER 17:18 → ICUE 17:18 → ER 03-19 → ERHOLD 03-19 → SURS 03-19 01:20 → ICUE 03-19 04:30 → SURS 03-19 04:30 → ICUE 03-19 04:30 → ERHOLD 03-19 15:16 → ICUE 03-19 15:16 → SURS 03-19 15:16 → ICUE 03-20 17:40
PROVIDERS: Emergency Medicine; Family Medicine; ADMIT Internal Medicine
DX: J96.01 Acute respiratory failure with hypoxia (principal); Q25.6 Stenosis of pulmonary artery; Q24.9 Congenital malformation of heart, unspecified; J96.02 Acute respiratory failure with hypercapnia; Z20.822 Contact with and (suspected) exposure to COVID-19; F79 Unspecified intellectual disabilities; Z66 Do not resuscitate; I10 Essential (primary) hypertension; G47.33 Obstructive sleep apnea (adult) (pediatric); H40.9 Unspecified glaucoma; I27.20 Pulmonary hypertension, unspecified; G40.909 Epilepsy, unspecified, not intractable, without status epilepticus; Q02 Microcephaly; Z86.718 Personal history of other venous thrombosis and embolism; Z90.49 Acquired absence of other specified parts of digestive tract; Z98.890 Other specified postprocedural states; Z98.49 Cataract extraction status, unspecified eye; Z88.0 Allergy status to penicillin; Z88.1 Allergy status to other antibiotic agents; Z88.8 Allergy status to other drugs, medicaments and biological substances; Z79.82 Long term (current) use of aspirin; Z79.899 Other long term (current) drug therapy
CPT/HCPCS: 0241U; 36415; 71045; 80053; 82803; 83880; 85025; 85379; 94762; 96372; 96374; 99285-25; A9270; G0378; J1650; J1940

== ENCOUNTER 2022-04-22 02:16 | Emergency (ER) | payer OTHER ==
[~2022-04-22] VITALS: Ht 165.1 cm; Wt 74.8 kg
[2022-04-22 07:25] LABS: Bun/Creatinine Ratio 16.8 (12.0-20.0); Calcium, Blood 9.2 mg/dL (8.5-10.1); Creatinine, Blood 1.01 mg/dL (0.40-1.00); Potassium, Blood 4.1 mmol/L (3.5-5.5)
== END 2022-04-22 10:59 | disposition home or self-care (01) ==
LOC: ER 02:16
PROVIDERS: Student in an Organized Health Care Education/Training Program
DX: T17.918A Gastric contents in respiratory tract, part unspecified causing other injury, initial encounter (principal); R11.2 Nausea with vomiting, unspecified; J96.01 Acute respiratory failure with hypoxia; I10 Essential (primary) hypertension; Z86.718 Personal history of other venous thrombosis and embolism; F79 Unspecified intellectual disabilities; X58.XXXA Exposure to other specified factors, initial encounter; Z79.899 Other long term (current) drug therapy; Z79.82 Long term (current) use of aspirin; Z88.1 Allergy status to other antibiotic agents; Z88.0 Allergy status to penicillin; Z88.8 Allergy status to other drugs, medicaments and biological substances
CPT/HCPCS: 36415; 71045; 80048

== ENCOUNTER 2022-06-26 05:48 | Emergency (ER) | payer OTHER ==
[~2022-06-26] VITALS: Ht 162.6 cm; Wt 81.7 kg
[2022-06-26 07:25] LABS: Influenza A, PCR NEGATIVE (NEGATIVE); Influenza B, PCR NEGATIVE (NEGATIVE); Resp Syncytial Virus, PCR NEGATIVE (NEGATIVE); SARS-Cov-2 (COVID-19) PCR, MMC NEGATIVE (NEGATIVE)
[2022-06-26 08:24] LABS: BASOPHILS ABSOLUTE AUTO 0.03 K/mm3 (0.00-0.23); BASOPHILS PERCENT AUTO 1 % (0-2); EOSINOPHILS ABSOLUTE AUTO 0.23 K/mm3 (0.00-0.68); EOSINOPHILS PERCENT AUTO 5 % (0-6); Hematocrit 48.3 % (33.0-51.0); Hemoglobin 15.1 g/dL (11.5-16.0); IMMATURE GRAN ABSOLUTE AUTO 0.02 K/mm3 (0.00-0.10); IMMATURE GRAN PERCENT AUTO 0 % (0-1); LYMPHOCYTES ABSOLUTE AUTO 1.79 K/mm3 (0.84-5.20); LYMPHOCYTES PERCENT AUTO 36 % (21-46); MONOCYTES ABSOLUTE AUTO 0.45 K/mm3 (0.16-1.47); MONOCYTES PERCENT AUTO 9 % (4-13); Mean Corpuscular HGB 32.3 pg (26.0-34.0); Mean Corpuscular HGB Conc 31.3 g/dL (31.5-36.5); Mean Corpuscular Volume 103 fL (80-100); Mean Platelet Volume 11.1 fL (9.1-12.4); NEUTROPHILS ABSOLUTE AUTO 2.48 K/mm3 (1.96-9.15); NEUTROPHILS PERCENT AUTO 50 % (41-73); Platelet Count 142 K/mm3 (150-400); RDW Coefficient Variation 13.8 % (11.7-14.2); RDW Standard Deviation 53.1 fL (35.1-46.3); Red Blood Cell Count 4.67 M/mm3 (3.80-5.20)
[2022-06-26 08:50] LABS: Albumin, Blood 3.9 g/dL (3.4-5.0); Albumin/Globulin Ratio 0.9 (0.8-1.8); Bilirubin, Total 0.5 mg/dL (0.1-1.0); Bun/Creatinine Ratio 23.2 (12.0-20.0); Calcium, Blood 10.1 mg/dL (8.5-10.1); Creatinine, Blood 0.73 mg/dL (0.40-1.00); Globulin, Blood 4.3 g/dL (2.2-4.0); Magnesium, Blood 2.3 mg/dL (1.6-2.4); Potassium, Blood 4.6 mmol/L (3.5-5.5); Total Protein, Blood 8.2 g/dL (6.4-8.2)
== END 2022-06-26 11:28 | disposition home or self-care (01) ==
LOC: ER 05:48
PROVIDERS: Student in an Organized Health Care Education/Training Program
DX: R09.02 Hypoxemia (principal); J81.1 Chronic pulmonary edema; I10 Essential (primary) hypertension; Z88.0 Allergy status to penicillin; Z88.1 Allergy status to other antibiotic agents; Z88.8 Allergy status to other drugs, medicaments and biological substances; Z79.899 Other long term (current) drug therapy; Z79.82 Long term (current) use of aspirin; Z20.822 Contact with and (suspected) exposure to COVID-19
CPT/HCPCS: 0241U; 36415; 71045; 80053; 83735; 83880; 84145; 85025; 93005; 93010; J1940

== ENCOUNTER 2022-06-29 21:13 | Emergency (ER) | payer OTHER ==
[~2022-06-29] VITALS: Ht 167.6 cm; Wt 90.7 kg
== END 2022-06-30 01:06 | disposition home or self-care (01) ==
LOC: ER 21:13
DX: Z00.8 Encounter for other general examination (principal); I10 Essential (primary) hypertension; Z88.0 Allergy status to penicillin; Z88.8 Allergy status to other drugs, medicaments and biological substances; Z79.899 Other long term (current) drug therapy; Z79.82 Long term (current) use of aspirin; Z86.718 Personal history of other venous thrombosis and embolism
CPT/HCPCS: 71045

== ENCOUNTER 2022-07-13 18:59 | Emergency (ER) | payer OTHER ==
[~2022-07-13] VITALS: Ht 154.9 cm; Wt 59.4 kg
[2022-07-13 20:01] LABS: BASOPHILS ABSOLUTE AUTO 0.01 K/mm3 (0.00-0.23); BASOPHILS PERCENT AUTO 0 % (0-2); EOSINOPHILS ABSOLUTE AUTO 0.22 K/mm3 (0.00-0.68); EOSINOPHILS PERCENT AUTO 4 % (0-6); Hematocrit 42.9 % (33.0-51.0); Hemoglobin 13.2 g/dL (11.5-16.0); IMMATURE GRAN ABSOLUTE AUTO 0.01 K/mm3 (0.00-0.10); IMMATURE GRAN PERCENT AUTO 0 % (0-1); LYMPHOCYTES ABSOLUTE AUTO 2.18 K/mm3 (0.84-5.20); LYMPHOCYTES PERCENT AUTO 36 % (21-46); MONOCYTES ABSOLUTE AUTO 0.73 K/mm3 (0.16-1.47); MONOCYTES PERCENT AUTO 12 % (4-13); Mean Corpuscular HGB 32.3 pg (26.0-34.0); Mean Corpuscular HGB Conc 30.8 g/dL (31.5-36.5); Mean Corpuscular Volume 105 fL (80-100); Mean Platelet Volume 11.5 fL (9.1-12.4); NEUTROPHILS ABSOLUTE AUTO 2.96 K/mm3 (1.96-9.15); NEUTROPHILS PERCENT AUTO 48 % (41-73); Platelet Count 136 K/mm3 (150-400); RDW Coefficient Variation 13.4 % (11.7-14.2); RDW Standard Deviation 51.8 fL (35.1-46.3); Red Blood Cell Count 4.09 M/mm3 (3.80-5.20); White Blood Cell Count 6.11 K/mm3 (4.00-11.30)
[2022-07-13 20:07] LABS: Albumin, Blood 3.4 g/dL (3.4-5.0); Albumin/Globulin Ratio 0.9 (0.8-1.8); Bilirubin, Total 0.3 mg/dL (0.1-1.0); Bun/Creatinine Ratio 18.9 (12.0-20.0); Calcium, Blood 9.1 mg/dL (8.5-10.1); Creatinine, Blood 0.74 mg/dL (0.40-1.00); Globulin, Blood 3.9 g/dL (2.2-4.0); Potassium, Blood 3.7 mmol/L (3.5-5.5); Total Protein, Blood 7.3 g/dL (6.4-8.2)
== END 2022-07-13 22:43 | disposition home or self-care (01) ==
LOC: ER 18:59
PROVIDERS: Emergency Medicine
DX: R55 Syncope and collapse (principal); I10 Essential (primary) hypertension; Z88.0 Allergy status to penicillin; Z88.1 Allergy status to other antibiotic agents; Z88.8 Allergy status to other drugs, medicaments and biological substances; Z79.899 Other long term (current) drug therapy; Z79.82 Long term (current) use of aspirin
CPT/HCPCS: 36415; 71045; 80053; 83880; 84484; 85025; 93005; 93010

== ENCOUNTER 2022-07-14 01:14 | Emergency (ER) | payer OTHER ==
[~2022-07-14] VITALS: Ht 165.1 cm; Wt 68.0 kg
== END 2022-07-14 03:10 | disposition home or self-care (01) ==
LOC: ER 01:14
DX: R06.00 Dyspnea, unspecified (principal); I10 Essential (primary) hypertension; Z88.0 Allergy status to penicillin; Z88.8 Allergy status to other drugs, medicaments and biological substances; Z79.899 Other long term (current) drug therapy; Z79.82 Long term (current) use of aspirin
CPT/HCPCS: 71045

== ENCOUNTER 2022-08-02 08:38 | Emergency (ER) | payer OTHER ==
[~2022-08-02] VITALS: Ht 160 cm; Wt 56.7 kg
[2022-08-02] MEDS ORDERED: BENZ100A (10:21)
[2022-08-02] MEDS ORDERED: GUAI600T33 (10:21)
[2022-08-02] MEDS ORDERED: OMEP20ER PO (10:22)
[2022-08-02 10:55] LABS: BASOPHILS ABSOLUTE AUTO 0.01 K/mm3 (0.00-0.23); BASOPHILS PERCENT AUTO 0 % (0-2); EOSINOPHILS ABSOLUTE AUTO 0.13 K/mm3 (0.00-0.68); EOSINOPHILS PERCENT AUTO 2 % (0-6); Hemoglobin 13.8 g/dL (11.5-16.0); IMMATURE GRAN ABSOLUTE AUTO 0.01 K/mm3 (0.00-0.10); IMMATURE GRAN PERCENT AUTO 0 % (0-1); LYMPHOCYTES ABSOLUTE AUTO 1.32 K/mm3 (0.84-5.20); LYMPHOCYTES PERCENT AUTO 23 % (21-46); MONOCYTES PERCENT AUTO 10 % (4-13); Mean Corpuscular HGB 32.5 pg (26.0-34.0); Mean Corpuscular Volume 108 fL (80-100); Mean Platelet Volume 11.3 fL (9.1-12.4); NEUTROPHILS ABSOLUTE AUTO 3.69 K/mm3 (1.96-9.15); NEUTROPHILS PERCENT AUTO 64 % (41-73); Platelet Count 122 K/mm3 (150-400); RDW Coefficient Variation 12.9 % (11.7-14.2); RDW Standard Deviation 51.9 fL (35.1-46.3); Red Blood Cell Count 4.25 M/mm3 (3.80-5.20); White Blood Cell Count 5.76 K/mm3 (4.00-11.30)
[2022-08-02 11:55] LABS: Alanine Aminotransfer (ALT/SGP 23 U/L (12-78); Albumin, Blood 3.7 g/dL (3.4-5.0); Albumin/Globulin Ratio 0.9 (0.8-1.8); Alk Phos 90 U/L (50-136); Aspartate Aminotrans (AST/SGOT 26 U/L (12-37); Bilirubin, Total 0.4 mg/dL (0.1-1.0); Blood Urea Nitrogen 11 mg/dL (8-24); Bun/Creatinine Ratio 12.7 (12.0-20.0); Calcium, Blood 9.4 mg/dL (8.5-10.1); Chloride, Blood 92 mmol/L (98-108); Creatinine, Blood 0.87 mg/dL (0.40-1.00); Globulin, Blood 4.1 g/dL (2.2-4.0); Glomerular Filtration Rate 76 (60-); Glucose, Blood 120 mg/dL (70-99); Potassium, Blood 3.8 mmol/L (3.5-5.5); Sodium, Blood 141 mmol/L (136-145); Total Protein, Blood 7.8 g/dL (6.4-8.2)
[2022-08-02 11:56] LABS: Anion Gap Unable to Calculate mmol/L (6-16); CO2, Blood >45 mmol/L (21-32)
== END 2022-08-02 14:14 | disposition home or self-care (01) ==
LOC: ER 08:38
PROVIDERS: Emergency Medicine
DX: M62.838 Other muscle spasm (principal); R06.89 Other abnormalities of breathing; J44.9 Chronic obstructive pulmonary disease, unspecified; R47.01 Aphasia; I10 Essential (primary) hypertension; Z88.0 Allergy status to penicillin; Z88.1 Allergy status to other antibiotic agents; Z88.8 Allergy status to other drugs, medicaments and biological substances; Z79.899 Other long term (current) drug therapy; Z79.82 Long term (current) use of aspirin; Z99.81 Dependence on supplemental oxygen
CPT/HCPCS: 36415; 70450; 71045; 80053; 83735; 83880; 84484; 85025; 93005; 93010

== ENCOUNTER 2022-08-11 10:55 | Emergency (ER) | payer OTHER ==
[~2022-08-11] VITALS: Ht 152.4 cm; Wt 79.4 kg
[~2022-08-11 10:55] MED LIST changes: +BENZ100A; +GUAI600T33
[2022-08-11 12:09] LABS: Influenza A, PCR NEGATIVE (NEGATIVE); Influenza B, PCR NEGATIVE (NEGATIVE); Resp Syncytial Virus, PCR NEGATIVE (NEGATIVE); SARS-Cov-2 (COVID-19) PCR, MMC NEGATIVE (NEGATIVE)
[2022-08-11 12:23] LABS: BASOPHILS ABSOLUTE AUTO 0.01 K/mm3 (0.00-0.23); BASOPHILS PERCENT AUTO 0 % (0-2); EOSINOPHILS ABSOLUTE AUTO 0.19 K/mm3 (0.00-0.68); EOSINOPHILS PERCENT AUTO 3 % (0-6); Hematocrit 44.2 % (33.0-51.0); Hemoglobin 13.8 g/dL (11.5-16.0); IMMATURE GRAN ABSOLUTE AUTO 0.01 K/mm3 (0.00-0.10); IMMATURE GRAN PERCENT AUTO 0 % (0-1); LYMPHOCYTES ABSOLUTE AUTO 1.46 K/mm3 (0.84-5.20); LYMPHOCYTES PERCENT AUTO 21 % (21-46); MONOCYTES ABSOLUTE AUTO 0.82 K/mm3 (0.16-1.47); MONOCYTES PERCENT AUTO 12 % (4-13); Mean Corpuscular HGB 33.1 pg (26.0-34.0); Mean Corpuscular HGB Conc 31.2 g/dL (31.5-36.5); Mean Corpuscular Volume 106 fL (80-100); NEUTROPHILS ABSOLUTE AUTO 4.57 K/mm3 (1.96-9.15); NEUTROPHILS PERCENT AUTO 65 % (41-73); Platelet Count 117 K/mm3 (150-400); RDW Coefficient Variation 12.6 % (11.7-14.2); RDW Standard Deviation 49.1 fL (35.1-46.3); Red Blood Cell Count 4.17 M/mm3 (3.80-5.20); White Blood Cell Count 7.06 K/mm3 (4.00-11.30)
[2022-08-11 12:52] LABS: Alanine Aminotransfer (ALT/SGP 20 U/L (12-78); Albumin, Blood 3.7 g/dL (3.4-5.0); Albumin/Globulin Ratio 0.9 (0.8-1.8); Alk Phos 82 U/L (50-136); Aspartate Aminotrans (AST/SGOT 24 U/L (12-37); Bilirubin, Total 0.5 mg/dL (0.1-1.0); Blood Urea Nitrogen 10 mg/dL (8-24); Calcium, Blood 9.5 mg/dL (8.5-10.1); Chloride, Blood 91 mmol/L (98-108); Creatinine, Blood 0.84 mg/dL (0.40-1.00); Globulin, Blood 3.9 g/dL (2.2-4.0); Glomerular Filtration Rate 80 (60-); Glucose, Blood 136 mg/dL (70-99); Potassium, Blood 3.4 mmol/L (3.5-5.5); Sodium, Blood 139 mmol/L (136-145); Total Protein, Blood 7.6 g/dL (6.4-8.2)
[2022-08-11 12:53] LABS: CO2, Blood >45 mmol/L (21-32)
[2022-08-11 12:54] LABS: Anion Gap Unable to Calculate mmol/L (6-16)
== END 2022-08-11 15:11 | disposition home or self-care (01) ==
LOC: ER 10:55
PROVIDERS: Physician Assistant
DX: J06.9 Acute upper respiratory infection, unspecified (principal); I10 Essential (primary) hypertension; Z20.822 Contact with and (suspected) exposure to COVID-19; Z99.81 Dependence on supplemental oxygen; Z88.0 Allergy status to penicillin; Z88.1 Allergy status to other antibiotic agents; Z88.8 Allergy status to other drugs, medicaments and biological substances; Z79.899 Other long term (current) drug therapy; Z79.82 Long term (current) use of aspirin
CPT/HCPCS: 0241U; 36415; 71046; 80053; 85025; A9270

== ENCOUNTER 2023-06-13 01:06 | Emergency (ER) | payer OTHER ==
[~2023-06-13] VITALS: Ht 160 cm; Wt 81.2 kg
[2023-06-13 01:24] VITALS: BP 113/93
[2023-06-13 02:37] LABS: Source, Urine Straight Cath
[2023-06-13 02:42] LABS: Bilirubin, Urine Neg (Neg); Blood, Urine 1+ (Neg); Glucose Qualitative, Urine Neg (Neg); Ketones, Urine Neg (Neg); Leukocyte Esterase, Urine 3+ (Neg); Nitrite, Urine Neg (Neg); Protein, Urine 2+ (Neg); Specific Gravity, Urine 1.015 (1.003-1.022); Urobilinogen, Urine NORM (Normal); pH, Urine 6.5 (5.0-8.0)
[2023-06-13 02:50] LABS: Appearance, Urine Hazy (Clear); Color, Urine Yellow (P-Yellow)
[2023-06-13 02:51] LABS: Bacteria Mod /hpf; Red Blood Cells, Urine 0-2 /hpf (0-2); Squamous Epithelial Cells Not Seen /hpf (Few); White Blood Cells, Urine 25-50 /hpf (0-5)
[2023-06-13 02:52] LABS: Amorphous Light (0-Heavy)
[2023-06-13 02:56] LABS: BASOPHILS ABSOLUTE AUTO 0.01 K/mm3 (0.00-0.23); BASOPHILS PERCENT AUTO 0 % (0-2); EOSINOPHILS ABSOLUTE AUTO 0.15 K/mm3 (0.00-0.68); EOSINOPHILS PERCENT AUTO 3 % (0-6); Hematocrit 42.6 % (33.0-51.0); Hemoglobin 13.4 g/dL (11.5-16.0); IMMATURE GRAN ABSOLUTE AUTO 0.03 K/mm3 (0.00-0.10); IMMATURE GRAN PERCENT AUTO 1 % (0-1); LYMPHOCYTES ABSOLUTE AUTO 1.75 K/mm3 (0.84-5.20); LYMPHOCYTES PERCENT AUTO 29 % (21-46); MONOCYTES ABSOLUTE AUTO 0.31 K/mm3 (0.16-1.47); MONOCYTES PERCENT AUTO 5 % (4-13); Mean Corpuscular HGB 32.5 pg (26.0-34.0); Mean Corpuscular HGB Conc 31.5 g/dL (31.5-36.5); Mean Corpuscular Volume 103 fL (80-100); Mean Platelet Volume 11.1 fL (9.1-12.4); NEUTROPHILS ABSOLUTE AUTO 3.72 K/mm3 (1.96-9.15); NEUTROPHILS PERCENT AUTO 62 % (41-73); Platelet Count 117 K/mm3 (150-400); RDW Coefficient Variation 11.7 % (11.7-14.2); RDW Standard Deviation 44.7 fL (35.1-46.3); Red Blood Cell Count 4.12 M/mm3 (3.80-5.20); White Blood Cell Count 5.97 K/mm3 (4.00-11.30)
[2023-06-13 03:15] LABS: Albumin, Blood 3.7 g/dL (3.4-5.0); Albumin/Globulin Ratio 1.1 (0.8-1.8); Bilirubin, Total 0.2 mg/dL (0.1-1.0); Bun/Creatinine Ratio 22.1 (12.0-20.0); Calcium, Blood 9.3 mg/dL (8.5-10.1); Creatinine, Blood 0.77 mg/dL (0.40-1.00); Globulin, Blood 3.5 g/dL (2.2-4.0); Potassium, Blood 4.1 mmol/L (3.5-5.5); Total Protein, Blood 7.2 g/dL (6.4-8.2)
[2023-06-13] MEDS ORDERED: NITR100CA PO (03:24)
== END 2023-06-13 03:56 | disposition home or self-care (01) ==
LOC: ER 01:06
PROVIDERS: Student in an Organized Health Care Education/Training Program
DX: N39.0 Urinary tract infection, site not specified (principal); I10 Essential (primary) hypertension; Z86.718 Personal history of other venous thrombosis and embolism; Z88.0 Allergy status to penicillin; Z88.1 Allergy status to other antibiotic agents; Z88.8 Allergy status to other drugs, medicaments and biological substances; Z79.82 Long term (current) use of aspirin
CPT/HCPCS: 51701; 71045; 80053; 81001; 85025; 87077; 87086; 87147; 87186; 93005; 93010; 99284-25; A9270

== ENCOUNTER 2023-10-06 06:53 | Inpatient (IN) | payer OTHER ==
[~2023-10-06] VITALS: Ht 152.4 cm; Wt 68.8 kg
[~2023-10-06 06:53] MED LIST changes: -BENZ100A; +CORTISONE60 GM TOP; -GUAI600T33; +GUAI600T33 PO; +NITR100CA PO
[2023-10-06 07:57] LABS: BASOPHILS ABSOLUTE AUTO 0.02 K/mm3 (0.00-0.23); BASOPHILS PERCENT AUTO 0 % (0-2); EOSINOPHILS ABSOLUTE AUTO 0.31 K/mm3 (0.00-0.68); EOSINOPHILS PERCENT AUTO 4 % (0-6); Hematocrit 44.5 % (33.0-51.0); Hemoglobin 13.7 g/dL (11.5-16.0); IMMATURE GRAN ABSOLUTE AUTO 0.01 K/mm3 (0.00-0.10); IMMATURE GRAN PERCENT AUTO 0 % (0-1); LYMPHOCYTES ABSOLUTE AUTO 3.31 K/mm3 (0.84-5.20); LYMPHOCYTES PERCENT AUTO 47 % (21-46); MONOCYTES ABSOLUTE AUTO 0.46 K/mm3 (0.16-1.47); MONOCYTES PERCENT AUTO 7 % (4-13); Mean Corpuscular HGB 32.2 pg (26.0-34.0); Mean Corpuscular HGB Conc 30.8 g/dL (31.5-36.5); Mean Corpuscular Volume 105 fL (80-100); Mean Platelet Volume 10.9 fL (9.1-12.4); NEUTROPHILS ABSOLUTE AUTO 2.96 K/mm3 (1.96-9.15); NEUTROPHILS PERCENT AUTO 42 % (41-73); Platelet Count 148 K/mm3 (150-400); RDW Standard Deviation 46.1 fL (35.1-46.3); Red Blood Cell Count 4.26 M/mm3 (3.80-5.20); White Blood Cell Count 7.07 K/mm3 (4.00-11.30)
[2023-10-06 08:04] LABS: Source, Urine Straight Cath
[2023-10-06] MEDS ORDERED: LORazepam 2 MG/ML 1ML Injection IM ONE (08:10)
[2023-10-06 08:13] LABS: Bilirubin, Urine Neg (Neg); Blood, Urine 3+ (Neg); Glucose Qualitative, Urine Neg (Neg); Ketones, Urine Neg (Neg); Leukocyte Esterase, Urine 1+ (Neg); Nitrite, Urine Neg (Neg); Protein, Urine Neg (Neg); Urobilinogen, Urine NORM (Normal); pH, Urine 6.5 (5.0-8.0)
[2023-10-06 08:29] LABS: Alanine Aminotransfer (ALT/SGP 20 U/L (12-78); Albumin, Blood 3.5 g/dL (3.4-5.0); Albumin/Globulin Ratio 0.8 (0.8-1.8); Alk Phos 95 U/L (50-136); Aspartate Aminotrans (AST/SGOT 24 U/L (12-37); Bilirubin, Total 0.5 mg/dL (0.1-1.0); Blood Urea Nitrogen 18 mg/dL (8-24); Bun/Creatinine Ratio 21.2 (12.0-20.0); Calcium, Blood 9.5 mg/dL (8.5-10.1); Chloride, Blood 95 mmol/L (98-108); Creatinine, Blood 0.85 mg/dL (0.40-1.00); Globulin, Blood 4.4 g/dL (2.2-4.0); Glomerular Filtration Rate 78 (60-); Glucose, Blood 119 mg/dL (70-99); Potassium, Blood 4.5 mmol/L (3.5-5.5); Sodium, Blood 140 mmol/L (136-145); Total Protein, Blood 7.9 g/dL (6.4-8.2)
[2023-10-06 08:30] LABS: Anion Gap Unable to Calculate mmol/L (6-16)
[2023-10-06 08:32] LABS: CO2, Blood >45 mmol/L (21-32)
[2023-10-06 08:52] LABS: Influenza A, PCR NEGATIVE (NEGATIVE); Influenza B, PCR NEGATIVE (NEGATIVE); Resp Syncytial Virus, PCR NEGATIVE (NEGATIVE); SARS-Cov-2 (COVID-19) PCR, MMC NEGATIVE (NEGATIVE)
[2023-10-06 09:00] LABS: Bicarbonate Venous 38.8 mmol/L (24.0-30.0); PCO2 Venous 102 mmHg (38-42); PO2 Venous 64.1 mmHg (38-42)
[2023-10-06 09:01] LABS: pH Blood Venous 7.27 (7.34-7.37)
[2023-10-06 09:19] LABS: Appearance, Urine Hazy (Clear); Color, Urine Pale Yellow (P-Yellow)
[2023-10-06 09:21] LABS: Bacteria Many /hpf; Squamous Epithelial Cells Rare /hpf (Few)
[2023-10-06] MEDS ORDERED: LevoFLOXacin 750 MG/D5W 150ML 150 ML IV ONE (09:50)
[2023-10-06] MEDS ORDERED: FLU VACC QS2023-24(6MOS UP)/PF 60 MCG/0.5 ML SYRINGE IM ONE (10:20)
[2023-10-06] MEDS ORDERED: Acetaminophen 325 MG TABLET PO PRN (10:20)
[2023-10-06] MEDS ORDERED: Furosemide 10 MG / ML 2ML Vial IV STA (10:41)
[2023-10-06] MEDS ORDERED: BENEFIBER236 G1 PO (12:01)
[2023-10-06] MEDS ORDERED: LATA.005SO RIGHTEYE (12:06)
[2023-10-06] MEDS ORDERED: MIRT15 PO (12:07)
[2023-10-06] MEDS ORDERED: TIMO.5OPSO BOTHEYES (12:08)
[2023-10-06 12:13] VITALS: BP 118/81
[2023-10-06 12:58] LABS: Bicarbonate Venous 43.5 mmol/L (24.0-30.0); PCO2 Venous 70.2 mmHg (38-42); pH Blood Venous 7.44 (7.34-7.37)
[2023-10-06] MEDS ORDERED: Lactulose 20 GM/30 ML UDC PO PRN (13:20)
[2023-10-06] MEDS ORDERED: LORazepam 2 MG/ML 1ML Injection IV PRN (13:30)
[2023-10-06] MEDS ORDERED: Polyethylene Glycol 3350 17 gm PO SCH (14:00)
[2023-10-06 15:01] VITALS: BP 130/118
--- NOTE | 2023-10-06 17:39 | NUR ---
SHIFT SUMMARY PT MENTATION REMAINS THE SAME. PT CONTINUES TO BE LETHARGIC. PT WAS MEDICATED WITH ATIVAN PRIOR TO CT SCAN REQUESTED BY DR. PEACE. PT HAS BEEN ON BIPAP 16/8 2L BLEED IN SINCE ADMISSION. PT HAS SHORT SHALLOW BREATHS. PT HAS BEEN INCONTINENT SINCE ADMISSION. PUREWICK NOW IN PLACE. PT PROVIDED BED BATH. CAREGIVER FROM [facility] HOMES AT BEDSIDE WITH PT. WILL CONTINUE TO MONITOR AND REPORT TO ONCOMING LYLA
[2023-10-06] MEDS ORDERED: Furosemide 10 MG/ML 4ML Vial IV SCH (18:00)
[2023-10-06 20:45] VITALS: BP 104/89
[2023-10-06] MEDS ORDERED: LamoTRIgine 100 MG Tab PO SCH (21:00)
[2023-10-06] MEDS ORDERED: Timolol 0.5% Opth Soln 5 ML BOTHEYES SCH (21:00)
[2023-10-06] MEDS ORDERED: Mirtazapine 30 MG Tab PO SCH (21:00)
[2023-10-06] MEDS ORDERED: TIMOLOL 0.5% BOTHEYES SCH (21:00)
[2023-10-06] MEDS ORDERED: OPTH BOTHEYES SCH (21:00)
[2023-10-06] MEDS ORDERED: Bisacodyl 5 MG TabEC PO SCH (21:00)
[2023-10-06] MEDS ORDERED: Latanoprost 0.005% Opth Soln 2.5 ML RIGHTEYE SCH (21:00)
[2023-10-06] MEDS ORDERED: Docusate Sodium 100 MG Cap PO SCH (21:00)
[2023-10-06] MEDS ORDERED: Sennosides 8.6 MG Tab PO SCH (21:00)
[2023-10-06 23:31] VITALS: BP 105/61
[2023-10-07 04:15] VITALS: BP 115/88
[2023-10-07 04:25] LABS: BASOPHILS ABSOLUTE AUTO 0.02 K/mm3 (0.00-0.23); BASOPHILS PERCENT AUTO 0 % (0-2); EOSINOPHILS ABSOLUTE AUTO 0.11 K/mm3 (0.00-0.68); EOSINOPHILS PERCENT AUTO 2 % (0-6); Hematocrit 42.2 % (33.0-51.0); Hemoglobin 13.3 g/dL (11.5-16.0); IMMATURE GRAN ABSOLUTE AUTO 0.01 K/mm3 (0.00-0.10); IMMATURE GRAN PERCENT AUTO 0 % (0-1); LYMPHOCYTES PERCENT AUTO 38 % (21-46); MONOCYTES ABSOLUTE AUTO 0.44 K/mm3 (0.16-1.47); MONOCYTES PERCENT AUTO 8 % (4-13); Mean Corpuscular HGB 32.2 pg (26.0-34.0); Mean Corpuscular HGB Conc 31.5 g/dL (31.5-36.5); Mean Corpuscular Volume 102 fL (80-100); Mean Platelet Volume 11.4 fL (9.1-12.4); NEUTROPHILS ABSOLUTE AUTO 2.68 K/mm3 (1.96-9.15); NEUTROPHILS PERCENT AUTO 51 % (41-73); Platelet Count 134 K/mm3 (150-400); RDW Standard Deviation 45.3 fL (35.1-46.3); Red Blood Cell Count 4.13 M/mm3 (3.80-5.20); White Blood Cell Count 5.26 K/mm3 (4.00-11.30)
[2023-10-07 04:55] LABS: Albumin, Blood 3.4 g/dL (3.4-5.0); Albumin/Globulin Ratio 0.8 (0.8-1.8); Bilirubin, Total 0.5 mg/dL (0.1-1.0); Bun/Creatinine Ratio 21.8 (12.0-20.0); Calcium, Blood 9.6 mg/dL (8.5-10.1); Creatinine, Blood 0.92 mg/dL (0.40-1.00); Globulin, Blood 4.2 g/dL (2.2-4.0); Potassium, Blood 3.5 mmol/L (3.5-5.5); Total Protein, Blood 7.6 g/dL (6.4-8.2)
--- NOTE | 2023-10-07 05:33 | NUR ---
SHIFT SUMMARY PT REMAINS NON-VERBAL BESIDES INTERMITTENT MUMBLED SPEECH. EYES OPEN SPONTANEOUSLY WELL TO BOTH VERBAL AND TACTILE STIMULI. WOULD OFTEN PUSH STAFF AWAY WHEN ATTEMPTING TO PERFORM CARE. PT IS NOTE REDIRECTABLE. CARDIAC, REMAINS IN SR RANGING 60-80'S WITH SBP BEING STABLE 100-110'S. RESPIRATORY, MAINTAINS SPO2 >95% ON BASELINE 2L NC. WORE BiPAP 18/8 W/2L BLEED T/O MOST OF THE NIGHT. WOULD SOMETIMES GET VERY ANXIOUS WITH STAFF WHEN RECEIVING CARE OR WHEN WEARING BiPAP. PRN ATIVAN GIVEN PER EMAR FOR ANXIETY. GI/, CONTINUES TO BE INCONTINENT OF URINE. PURWICK IN PLACE DRAINING YELLOW URINE TO SUCTION. NO BM THIS SHIFT. NO NEW ORDERS AT THIS TIME, WILL REPORT TO ONCOMING RN. ADITYA PINEDO OF THIS NOTE.
[2023-10-07] MEDS ORDERED: Omeprazole 20 MG CapCR PO SCH (06:00)
[2023-10-07 08:10] VITALS: BP 134/65
[2023-10-07] MEDS ORDERED: Aspirin 81 MG TabEC PO SCH (09:00)
[2023-10-07] MEDS ORDERED: Enoxaparin 40 MG/0.4 ML SYR SC SCH (09:00)
[2023-10-07] MEDS ORDERED: LevoFLOXacin 750 MG/D5W 150ML 150 ML IV SCH (09:00)
[2023-10-07 11:09] VITALS: BP 126/93
[2023-10-07] MEDS ORDERED: ERYT.5TO BOTHEYES (11:56)
[2023-10-07 15:23] VITALS: BP 116/69
[2023-10-07 17:18] VITALS: BP 110/70
--- NOTE | 2023-10-07 17:46 | NUR ---
shift summary NO ACUTE CHANGES THIS TIME. pT NON VERBAL, MOANS, SWATS STAFF AWAY WHEN TRYING TO DO PT CARE. CARD FOLDER IN ROOM FROM 09-1200 FROM [place]. SP02>90% ON RA MOST OF DAY. TELEMETRY SHOWED MOSTLY NSR, HR 70'S. VSS. CBG THIS EVENING WAS 85. PUDDING GIVEN W/ NO APPARANT COMPLICATIONS. PURWIK TO SUCTION W/ YELLOW URINE. ATTENDS CHANGED BY 4 STAFF. NO BM THIS SHIFT. BED BATH GIVEN, LINEN CHANGED. ABX INFUSED PER EMAR. CALL LIGHT IN REACH. PT WATCHING TV.
[2023-10-07 17:58] LABS: Base Excess Venous 18.9 mmol/L; Bicarbonate Venous 40.8 mmol/L (24.0-30.0); PCO2 Venous 45.8 mmHg (38-42)
[2023-10-07 17:59] LABS: pH Blood Venous 7.56 (7.34-7.37)
[2023-10-07 20:38] VITALS: BP 115/75
[2023-10-07 22:31] LABS: Base Excess Venous 18.3 mmol/L; Bicarbonate Venous 38.1 mmol/L (24.0-30.0); PCO2 Venous 77.1 mmHg (38-42); pH Blood Venous 7.36 (7.34-7.37)
[2023-10-08 00:22] VITALS: BP 107/69
[2023-10-08 04:46] LABS: BASOPHILS ABSOLUTE AUTO 0.02 K/mm3 (0.00-0.23); BASOPHILS PERCENT AUTO 0 % (0-2); EOSINOPHILS ABSOLUTE AUTO 0.16 K/mm3 (0.00-0.68); EOSINOPHILS PERCENT AUTO 3 % (0-6); Hematocrit 41.9 % (33.0-51.0); Hemoglobin 13.1 g/dL (11.5-16.0); IMMATURE GRAN ABSOLUTE AUTO 0.01 K/mm3 (0.00-0.10); IMMATURE GRAN PERCENT AUTO 0 % (0-1); LYMPHOCYTES ABSOLUTE AUTO 2.19 K/mm3 (0.84-5.20); LYMPHOCYTES PERCENT AUTO 44 % (21-46); MONOCYTES ABSOLUTE AUTO 0.61 K/mm3 (0.16-1.47); MONOCYTES PERCENT AUTO 12 % (4-13); Mean Corpuscular HGB 31.6 pg (26.0-34.0); Mean Corpuscular HGB Conc 31.3 g/dL (31.5-36.5); Mean Corpuscular Volume 101 fL (80-100); Mean Platelet Volume 11.5 fL (9.1-12.4); NEUTROPHILS ABSOLUTE AUTO 1.99 K/mm3 (1.96-9.15); NEUTROPHILS PERCENT AUTO 40 % (41-73); Platelet Count 132 K/mm3 (150-400); RDW Coefficient Variation 12.1 % (11.7-14.2); RDW Standard Deviation 45.3 fL (35.1-46.3); Red Blood Cell Count 4.14 M/mm3 (3.80-5.20); White Blood Cell Count 4.98 K/mm3 (4.00-11.30)
[2023-10-08 05:13] LABS: Albumin, Blood 3.3 g/dL (3.4-5.0); Albumin/Globulin Ratio 0.8 (0.8-1.8); Bilirubin, Total 0.6 mg/dL (0.1-1.0); Bun/Creatinine Ratio 20.4 (12.0-20.0); Calcium, Blood 9.7 mg/dL (8.5-10.1); Creatinine, Blood 1.03 mg/dL (0.40-1.00); Globulin, Blood 4.2 g/dL (2.2-4.0); Potassium, Blood 3.2 mmol/L (3.5-5.5); Total Protein, Blood 7.5 g/dL (6.4-8.2)
[2023-10-08 05:21] VITALS: BP 116/98
--- NOTE | 2023-10-08 06:54 | NUR ---
NOC SHIFT SUMMARY PT ORIENTED TO SELF ONLY, NONVERBAL AT BASELINE. ANXIOUS/AGITATED AT START OF SHIFT, PULLING OFF NC, PUSHING AT STAFF. ATIVAN 1MG GIVEN X1 WITH LITTLE RELIEF. ADDITIONAL DOSE GIVEN. PT RELAXED AND KEPT NASAL CANNULA ON. REPEAT VBG OBTAINED AFTER SPEAKING WITH DR. MEZA AROUND 2300, SHOWING INCREASING CO2. PER DEAN OROURKE, RT PUT BACK ON BIPAP. PT PUT ON BIPAP AND REQUIRED AN ADDITIONAL DOSE OF ATIVAN TO KEEP MASK ON. PULLING AT MASK AND REMOVING WELL DISCONNECTING TUBE. VITALS STABLE, ON TELEMETRY. INCONTINENT OF URINE AND BOWEL, PURWICK AND ATTENDS REPLACED THIS AM. WILL PASS ON TO DAY RN
[2023-10-08 07:27] VITALS: BP 124/93
[2023-10-08] MEDS ORDERED: Potassium Chl 20MEQ/Water100ML 100 ML IV SCH (07:35)
--- NOTE | 2023-10-08 07:35 | NUR ---
AM ASSESSMENT: Pt laying in bed with bipap on, 6L bleed in, biox 95-100%. Pt yelling and appears to be agitated. HR reg. BT positive. LS diminished throughout. Pure wick in place. Will transition to O2 per NC. Will medicate Per orders. Bed alarm on. Will monitor.
--- NOTE | 2023-10-08 10:46 | NUR ---
Spoke with Sheree Valencia, who identifies herself as warehouse picker and POA for this patient. I explained the current findings of pt's echo as well as current treatment plan, along with the recommendation for home with hospice due to HF and co-morbidities. She is going to discuss with RN and call back with Team Meeting time.
[2023-10-08 11:14] VITALS: BP 134/63
--- NOTE | 2023-10-08 11:39 | NUR ---
Care Conference: Meeting tomorrow at 10am in Palliative Care Office with [facility] staff, to decide on direction of care plan moving forward. They are aware of the hospice reccomendation. Will finalize care plan tomorrow, and report to Dr. Richmond afterwards.
[2023-10-08 15:32] VITALS: BP 127/71
--- NOTE | 2023-10-08 17:28 | NUR ---
Shift Summary: Pt currently sitting up in bed watching TV. Appears comfortable and is not yelling or grabbing. Was able to titrate down to RA today and biox has remained low 90's. Other VS have been stable throughout the shift. Pt voiding into pure wick with one incontinant void. NO BM. Plan for meeting tomorrow with palliative care, physician and POA to determine plan of care. Pt stable at this time. WIll monitor and report to night RN.
[2023-10-08 19:47] VITALS: BP 135/91
[2023-10-09 03:23] VITALS: BP 139/99
--- NOTE | 2023-10-09 06:11 | NUR ---
shift summary. pt has been doing well overall throughout shift, no acute changes. pt nonverbal, developmental delay, comes from [facility]. mostly cooperative with care, occasionally defensive and swats at staff while attempting to perform care. despite this, have been able to perform brief changes prn, medications have been administered, and pt has been repositioned prn. does not use call light, does not make needs known, does not respond appropriately to direction. bedrest throughout shift thus far. pt incontinent, purewick was in place for first half of shift but was ineffective and repeat attempt at purewick was also ineffective so pt has not had purewick throughout remainder of morning, brief in place and changed prn. tele on throughout shift, no events thus far. I+Os charted appropriately. has been maintaining saturations >92% on 2 l o2 via nc throughout shift. bed locked in lowest position. continuing to monitor.
[2023-10-09] MEDS ORDERED: Potassium Chloride 40 MEQ in NS 250 ML IV ONE (07:20)
[2023-10-09 07:29] VITALS: BP 121/91
--- NOTE | 2023-10-09 09:55 | NUR ---
AM NOTE this rn assumed care at 0700. vital signs stable. tele sinus 70s. patient is nonverbal at baseline, alert, appears to be oriented to self and staff, and has a history of development delay. patient is not able to follow commands. patient will yell out sounds at times when staff is in the room. patient does not appear to be in pain, based off of the faces scale, and does not appear to have chest pain/pressure. see shift assesment for further detials. md graves and team by to see patient this am. plan of care remains up to date.
--- NOTE | 2023-10-09 10:42 | NUR ---
Care Conference: Met with Team from [facility], along with Resident team. Discussion regarding pt's current condition, and reviewed hospital course. The decision was made by [facility] for pt to return home with [facility] who has an opening on Friday. Pt would do best with a same day admission, as the facility is unable to give prn medications without specific parameters. The team is in agreement that it would detrimental to the patient to return to the hospital while awaiting hospice.
--- NOTE | 2023-10-09 15:10 | NUR ---
transfer note/shift summary this rn gavre report to kari corbett on medical floor. patient is moving to room 350. belongings gathered and with patient on bed. plan is for patient to be discharged friday with hospice back to [facility]. no acute changes.
[2023-10-09 15:45] VITALS: BP 111/76
--- NOTE | 2023-10-09 16:19 | NUR ---
PT ARRIVED TO ROOM 350 VIA BED FROM PCU. GRABBING HANDS OF STAFF ON ARRIVAL BUT SINCE THEN HAS BEEN PUSHING HANDS AWAY AND NOT ALLOWING PULSE OX TO BE COMPLETED AND REMOVED THE OX ON HER TOE.
--- NOTE | 2023-10-09 18:30 | NUR ---
SHIFT SUMMARY SINCE ARRIVAL TO FLOOR PT HAS GROWLED AND HOLLERED FREQUENTLY. THROWS BOOK OVER SIDE OF BED. REACHES FOR STAFF HANDS AND THEN THROWS THEM AWAY FROM HER. KEEPS O2 IN PLACE WELL BUT REMOVES CONTINUOUS PULSE OX PROBE OFF TOE. INCONTINENT OF BOWEL AND BLADDER. NO RESP DISTRESS NOTED SINCE ARRIVAL TO FLOOR.
[2023-10-09 19:18] VITALS: BP 129/97
--- NOTE | 2023-10-10 04:26 | NUR ---
PATIENT IS ALERT BUT NONVERBAL, MOANED AND RAISE ARMS TO CONVEY HER NEEDS. ONCONTINUOUS BIOX, OXYGEN AT 3 LPM/NASAL CANNULA. ABLE TO TAKE HER MEDICATION WITH PUDDING WITHOUT ANY ISSUES. REPOSITIONED AND INCONTINED AND CHANGED. WITH POWERGLIDE ON RIGHT ARM. ON TELE SINUS RHYTHM AT 70. NEEDS ATTENDED. CALL LIGHT WITHIN PATIENT'S REACH. WILL CONTINUE TO MONITOR.
[2023-10-10 05:18] VITALS: BP 139/87
[2023-10-10 07:18] VITALS: BP 126/79
[2023-10-10] MEDS ORDERED: ACET325 PO (11:47)
--- NOTE | 2023-10-10 13:13 | NUR ---
DISCHARGE NOTE: [facility] ARRIVED VIA WHEELCHAIR TO TRANSPORT PATIENT BACK TO [facility]. THE PATIENT WAS CLEANED, HER POWER GLIDE WAS REMOVED, AND HER BELONGINGS AND PAPERWORK WAS GIVEN TO THE TRANSPORTER. THE PATIENT WAS A 2PERSON TRANSFER WITH [place]T FROM THE BED TO THE WHEELCHAIR WITHOUT DIFFICULTY AND WAS TRANSITIONED FROM HOSPITAL OXYGEN TO HER PORTAL OXYGEN. NO SIGNS OR SYMPTOMS OF DISTRESS WITH DISCHARGE.
[2023-10-11] MEDS ORDERED: LevoFLOXacin 750 MG/D5W 150ML 150 ML IV SCH (09:00)
== END 2023-10-10 13:12 | disposition hospice, home (50) | DRG 177 ==
LOC: ER 06:53 → PCU 11:07 → MEDS 10-09 15:33
PROVIDERS: Emergency Medicine; Family Medicine; Student in an Organized Health Care Education/Training Program; ADMIT Hospitalist
PROC: 5A09357 Assistance with Respiratory Ventilation, Less than 24 Consecutive Hours, Continuous Positive Airway Pressure (ICD-10-PCS; principal; 2023-10-06)
DX: J15.69 Pneumonia due to other Gram-negative bacteria (principal); J96.21 Acute and chronic respiratory failure with hypoxia; J96.22 Acute and chronic respiratory failure with hypercapnia; Z51.5 Encounter for palliative care; Z66 Do not resuscitate; R82.71 Bacteriuria; K59.09 Other constipation; H40.9 Unspecified glaucoma; R62.50 Unspecified lack of expected normal physiological development in childhood; E87.6 Hypokalemia; I51.7 Cardiomegaly; G40.909 Epilepsy, unspecified, not intractable, without status epilepticus; I27.20 Pulmonary hypertension, unspecified; E87.70 Fluid overload, unspecified; Z99.81 Dependence on supplemental oxygen; Z79.82 Long term (current) use of aspirin; Z11.52 Encounter for screening for COVID-19; Z28.21 Immunization not carried out because of patient refusal
CPT/HCPCS: 0241U; 36415; 71045; 71250; 80053; 81001; 82803; 82947; 83735; 83880; 84145; 85025; 85379; 87077; 87086; 87186; 93005; 93010; 93306; 94660; 94762; 96365; 96375; 99285-25; A9270; J1650; J1940; J1956; J2060; J3480; J7050; P9612